=== PATIENT | male | born 1975 | race Caucasian/White ===

== ENCOUNTER 2021-01-15 18:43 | Emergency (ER) | payer OTHER, MEDICAID ==
[~2021-01-15] VITALS: Ht 180.3 cm; Wt 90.7 kg
[2021-01-15 19:00] VITALS: BP_SYST 112
[2021-01-15] MEDS ORDERED: LORazepam 1 MG TABLET PO ONE (19:00)
[2021-01-15 19:53] LABS: BASOPHILS % (AUTO) 0.3 % (0.0-2.0); EOSINOPHILS # (AUTO) 0.1 K/uL (0.0-0.4); EOSINOPHILS % (AUTO) 1.3 % (0.0-4.0); HEMATOCRIT 42.9 % (36-54); HEMOGLOBIN 14.8 g/dL (14.0-18.0); LYMPHOCYTES # (AUTO) 1.9 K/uL (1.0-5.5); LYMPHOCYTES % (AUTO) 24.2 % (20.5-51.5); MEAN CORPUSCULAR HEMOGLOBIN 31 pg (27-31); MEAN CORPUSCULAR HGB CONC 35 % (32-36); MEAN CORPUSCULAR VOLUME 88 fL (79.0-98.0); MONOCYTES # (AUTO) 0.7 K/uL (0.0-1.0); MONOCYTES % (AUTO) 8.4 % (1.7-9.3); NEUTROPHILS # (AUTO) 5.1 K/uL (1.8-7.7); NEUTROPHILS % (AUTO) 65.8 % (40.0-70.0); PLATELET COUNT (AUTO) 185 K/uL (130-430); RED BLOOD CELL COUNT(AUTO) 4.86 MIL/uL (4.2-6.2); RED CELL DISTRIBUTION WIDTH 13.4 % (9.0-15.0); WHITE BLOOD COUNT (AUTO) 7.8 K/uL (4.8-10.8)
[2021-01-15 20:15] LABS: CALCIUM 9.1 mg/dL (8.4-11.0); CREATININE 0.96 mg/dL (0.55-1.30)
[2021-01-15] MEDS ORDERED: IBUPROFEN 800 MG TABLET PO ONE (20:15)
[2021-01-15 20:20] LABS: ALBUMIN 3.8 g/dL (3.4-4.8); TOTAL BILIRUBIN 0.3 mg/dL (0.0-1.0)
[2021-01-15] MEDS ORDERED: levETIRAcetam 1,000 MG IV BAG 100 ML IV ONE (21:00)
[2021-01-15] MEDS ORDERED: LEVE500T9 PO (21:02)
[2021-01-15] MEDS ORDERED: GABAPENTIN 300 MG CAPSULE PO ONE (23:30)
[2021-01-15] MEDS ORDERED: traZODone HCL 50 MG TABLET (DESYREL) PO ONE (23:30)
[2021-01-15] MEDS ORDERED: METOPROLOL TARTRATE 25 MG TABLET PO ONE (23:30)
[2021-01-15] MEDS ORDERED: DIAZEPAM 5 MG TABLET (VALIUM) PO ONE (23:30)
[2021-01-15] MEDS ORDERED: traZODone HCL 50 MG TABLET (DESYREL) ONE (23:50)
[2021-01-16] MEDS ORDERED: AMMONIA INHALANT 0.3mL AMPUL INH ONE (00:15)
[2021-01-16 01:39] VITALS: BP_SYST 126
== END 2021-01-16 01:39 ==
LOC: SED 18:43
DX: R56.9 Unspecified convulsions (principal); Z88.8 Allergy status to other drugs, medicaments and biological substances; Z79.899 Other long term (current) drug therapy
CPT/HCPCS: 36415; 70450; 76376; 80053; 83605; 85025; 96365; 99285; J1953